=== PATIENT | male | born 1995 | race Caucasian/White ===

== ENCOUNTER 2019-12-31 08:15 | Emergency (ER) | payer SELFPAY ==
[2019-12-31 08:19] VITALS: BP 141/78; PULSE 77; RESP 16; O2SAT 99; BMI 25.0
--- NOTE | 2019-12-31 08:23 | XR_ITS ---
WS: [id number] Right hand, 3 views, 12/31/2019 Clinical Data: pain/trauma Comparison: None. Findings: The transverse fracture of the distal portion of the right third distal phalanx. The remainder of the phalanges is normal. The metacarpals are unremarkable. The joint spaces are normal. XR/XR hand RT min 3V* [id number] Impression: Transverse fracture of distal portion of right third distal phalanx.
--- NOTE | 2019-12-31 08:24 | ED_ITS ---
HPI - Extremity Problem General: Chief complaint: Extremity Injury, Upper Stated complaint: right hand pain Time Seen by Provider: 12/31/19 08:17 History of Present Illness: HPI Narrative: Patient struck a window/glass on Monday and now has pain in his right hand and wrist is progressively worsened. Does have multiple abrasions to the right hand. Does have some mild redness to those areas. MD Complaint: extremity pain and joint paint Onset (ago): day(s) Pain Consistency: constant Location: right and upper extremity Severity scale (1-10): 7 Quality: aching Radiation: distal Relieving factors: medication (Not working anymore) Associated symptoms: Deny chest pain, fever(s) or rash Review of Systems Const: Denies: fever, chills or body aches Eyes: Denies: change in vision or blurry vision ENMT: Denies: throat pain or nasal congestion Card: Denies: chest pain or shortness of breath on exertion Resp: Denies: shortness of breath, productive cough or non-productive cough GI: Denies: abdominal pain, nausea or vomiting : Denies: difficulty urinating Musc: Reports: extremity pain, joint pain and limited range of motion Skin/Breast: Denies: rash Neuro: Denies: headache Psych: Denies: anxiety or depression Roney/Lymph: Denies: easy bruising PFSH ED PFSH: Statuses (acute, chronic, etc) shown below reflect problem list status as previously entered and may not be historically accurate Social History Smoking and tobacco status: current every day smoker Physical Exam Const: COMMON NORMALS: no apparent distress, average body habitus and oriented x3 HENMT: COMMON NORMALS: normocephalic HEAD & SCALP: normal to inspection and normocephalic FACE & SINUS: normal facial exam Eye: COMMON NORMALS: conjunctivae normal GENERAL EYE: normal appearance of both eyes CONJUNCTIVA: Yes conjunctivae normal Neck/C-Spine: COMMON NORMALS: no JVD Chest: COMMONS NORMALS: inspection of chest normal Resp: COMMON NORMALS: normal respiratory effort and clear to auscultation bilaterally AUSCULTATION: clear to auscultation bilaterally Cardio: COMMON NORMALS: no JVD, regular rate and regular rhythm RATE: regular rate RHYTHM: regular rhythm GI: COMMON NORMALS: normal to inspection, nondistended, normoactive bowel sounds Extremity: COMMON NORMALS: normal to inspection and full ROM RIGHT UPPER EXTREMITY: Yes wrist (Tenderness to the right wrist without swelling does have good range of motion but does hurt to move.) and Yes hand & digits (Has multiple abrasions over the right hand dorsal surface to the knuckles into the fingers. Does have some mild redness to couple of the abrasions. Does have tenderness to the knuckles especially #4 and 5 and to the #4-5 metacarpals.) Right hand and digits: Yes other (On further exam there is slight tenderness over the distal phalanx on the right side #3 patient states that is been there for a month month and a half.) Neuro: COMMON NORMALS: oriented x3 Course Vital Signs: Vital signs: Vital Signs Pulse Rate 77 12/31/19 08:19 Respiratory Rate 16 12/31/19 08:19 Blood Pressure 141/78 12/31/19 08:19 Pulse Oximetry 99 12/31/19 08:19 MDM - Extremity (Nontraumatic) MDM Narrative: Medical decision making narrative: Fracture at the tip of his right middle finger happened approximately a month month and a half ago. Patient is only having pain at that area presently. Discharge Plan Discharge Patient Disposition: Home, Self-Care Clinical Impression: Sprain and strain of wrist Abrasion hand Qualifiers: Encounter type: initial encounter Laterality: right Qualified Code(s): S60.511A - Abrasion of right hand, initial encounter Phalanx, distal fracture of finger Qualifiers: Encounter type: initial encounter Finger: middle finger Fracture type: closed Fracture alignment: displaced Laterality: right Qualified Code(s): S62.632A - Displaced fracture of distal phalanx of right middle finger, initial encounter for closed fracture Condition: Stable Prescriptions: New Keflex 500 mg capsule 500 mg PO TID 7 Days Qty: 21 RF: 0 tramadol 50 mg tablet 50 mg PO Q8H PRN (Reason: pain) Qty: 10 RF: 0 No Action Tylenol Extra Strength 500 mg Tablet 1,000 mg PO Q4H PRN (Reason: Pain) RF: 0 ibuprofen 200 mg Tablet 800 mg PO Q4H PRN (Reason: Pain) RF: 0 Discharge Orders: Discharge Order (Routine); Ordered 12/31/19 Ordered By: Domingo Bose Referrals: Eddi Castañeda MD [Primary Care Provider] - Discharge Diet: Usual diet Discharge Activity: Increase activity as tolerated Patient Instructions: Wrist Injury (ED), Abrasion (ED) Activity Restrictions/Additional Instructions: Follow-up with medical provider as directed. Take medications as prescribed. Return to the ER or your medical provider if condition worsens. Please read and understand discharge instructions. If any questions ask please. Coding Level of Care Code ED [employer] for Chg Fwd Exam Problem Focused
--- NOTE | 2019-12-31 08:24 | XR_ITS ---
WS: [id number] Right wrist, 3 views, 12/31/2019 Clinical Data: pain/trauma Comparison: None. Findings: No fractures or dislocations are seen. The carpal bones are intact. There is no soft tissue swelling. The distal radius and ulna are not remarkable. XR/XR wrist RT min 3V* [id number] Impression: Negative right wrist.
--- NOTE | 2019-12-31 08:33 | PC.NURSE ---
Xray performed at bedside
== END 2019-12-31 08:50 | disposition home or self-care (01) ==
PROVIDERS: Emergency Provider Nurse Practitioner Family; Family Provider Family Medicine; PCP Family Medicine
DX: S63.501A Unspecified sprain of right wrist, initial encounter (principal); S66.911A Strain of unspecified muscle, fascia and tendon at wrist and hand level, right hand, initial encounter; S60.511A Abrasion of right hand, initial encounter; S62.632A Displaced fracture of distal phalanx of right middle finger, initial encounter for closed fracture; W22.09XA Striking against other stationary object, initial encounter; F17.210 Nicotine dependence, cigarettes, uncomplicated
CPT/HCPCS: 73110; 73130; 99281; 99282